=== PATIENT | male | born 1965 | race Caucasian/White ===

== ENCOUNTER 2023-12-09 06:42 | Outpatient (CLI) | payer BC ==
[~2023-12-09 06:42] MED LIST: GADOTERATE MEGLUMINE 7.5 MMOL/15 ML VIAL IV ONE; LIDOcaine 1% 30ml preserv. free vial ONE; LIDOcaine 1%/PF 5ML 10 MG/ML VIAL ONE; iohexol 300 MG/1 ML 50ml polymer ONE
== END 2023-12-09 23:59 | disposition home or self-care (01) ==
LOC: RAD 06:42
PROVIDERS: ATTEND Orthopaedic Surgery
DX: S46.011A Strain of muscle(s) and tendon(s) of the rotator cuff of right shoulder, initial encounter (principal); M19.011 Primary osteoarthritis, right shoulder; M25.511 Pain in right shoulder; X58.XXXA Exposure to other specified factors, initial encounter; Y93.89 Activity, other specified; Y92.89 Other specified places as the place of occurrence of the external cause; Y99.8 Other external cause status
CPT/HCPCS: 73222; A9575; J3490; Q9967